=== PATIENT | male | born 1980 | race African-American/Black ===

== ENCOUNTER 2020-10-19 17:57 | Emergency (ER) | payer OTHER ==
[~2020-10-19] VITALS: Ht 185.4 cm; Wt 144.5 kg
[2020-10-19 19:00] VITALS: BP 216/107
--- NOTE | 2020-10-19 19:40 | RAD ---
XR EXAM OF ANKLE_LEFT 3V DATE: 10/19/2020 7:00 PM INDICATION: left ankle pain COMPARISON: None. FINDINGS: Bones: There is no evidence of acute fracture or dislocation. Small posterior and plantar calcaneal e nthesophytes. Joints: The ankle mortise is congruent. No widening of the distal tibiofibular syndesmosis. Miscellaneous: None. IMPRESSION: No evidence of acute fracture. Electronically signed by: Glen Connell MD (10/19/2020 7:38 PM) [facility]
--- NOTE | 2020-10-19 19:56 | ED.ADGEN ---
Past Medical History Past Medical History: Hypertension Past Surgical History: No Surgical History Smoking Status: Never Smoker Alcohol Use: None General Adult EDM: Chief Complaint: ANKLE PROBLEM HPI: HPI: Patient is a 40 year old AA male, accompanied [facility] assisted staff [facility] with complaints of lateral left ankle pain. Patient was working in the kitchen when he slipped and fell and twisted his left ankle. Patient was given Toradol at the facility. He currently denies any pain at rest, the pain increases with palpation. Patient denies any decreased sen sation, numbness, or tingling of the affected extremity. He reports increased pain on movement. Review of Systems: Review of Systems: Complete ROS is negative unless otherwise noted in HPI. Current Medications: Current Medications Medications (Trade) Dose Ordered Sig/William Start Time Stop Time Status Last Admin Dose Admin Morphine Sulfate (Morphine Sulfate) 4 mg 1X ONCE 10/19/20 20:00 10/19/20 19:58 DC Ondansetron HCl (Zofran) 4 mg 1X ONCE 10/19/20 20:00 10/19/20 19:58 DC Sodium Chloride 1,000 ml @ 1,000 mls/hr 1X ONCE 10/19/20 20:00 10/19/20 19:58 DC Allergies: Allergies: Allergies Coded Allergies Type Severity Reaction Last Updated Verified No Known Drug Allergies 10/19/20 No Physical Exam: PE: See Above Constitutional: Well developed, well nourished, no acute distress, non-toxic appearance, morbidly obese. [] HENT: Normocephalic, atraumatic, bilateral external ears normal, nose normal. [] Eyes: PERRLA, EOMI, conjunctiva normal, no discharge. [] Neck: Normal range of motion, no stridor. [] Cardiovascular:Heart rate regular rhythm Lungs & Thorax: Respirations even and unlabored, no retractions, no respiratory distress Skin: Warm, dry, no erythema, no rash. [] Extremities: Left ankle: Lateral tenderness to palpation without crepitus or obvious deformity, 2+ pedal and posterior tibial pulses, no cyanosis, ROM limited due to pain, 1+ lateral edema Neurologic: Alert and oriented X 3, no focal deficits noted. [] Psychologic: Affect normal, judgement normal, mood normal. [] Current Patient Data: Vital Signs: Vital Signs Date Time Temp Pulse Resp B/P (MAP) Pulse Ox O2 Delivery O2 Flow Rate FiO2 10/19/20 19:00 98.2 63 13 216/107 (143) 97 Room Air 98.2 EKG: EKG: [] Heart Score: C/O Chest Pain: No Risk Scores: Score 0 - 3: 2.5% MACE over next 6 weeks - Discharge Home Score 4 - 6: 20.3% MACE over next 6 weeks - Admit for Clinical Observation Score 7 - 10: 72.7% MACE over next 6 weeks - Early Invasive Strategies Radiology/Procedures: Radiology/Procedures: PROCEDURE: ANKLE LEFT 3V XR EXAM OF ANKLE_LEFT 3V DATE: 10/19/2020 7:00 PM INDICATION: left ankle pain COMPARISON: None. FINDINGS: Bones: There is no evidence of acute fracture or dislocation. Small posterior and plantar calcaneal enthesophytes. Joints: The ankle mortise is congruent. No widening of the distal tibiofibular syndesmosis. Miscellaneous: None. IMPRESSION: No evidence of acute fracture. Electronically signed by: Glen Connell MD (10/19/2020 7:38 PM) [facility] [] Course & Med Decision Making: Course & Med Decision Making Pertinent Labs and Imaging studies reviewed. (See chart for details) [] Akua Disclaimer: Akua Disclaimer: This electronic medical record was generated, in whole or in part, using a voice recognition dictation system. Departure Departure Impression: Primary Impression: Left lateral ankle pain Disposition: 01 HOME / SELF CARE / HOMELESS Condition: STABLE Referrals: NO PCP (PCP) EROS FONG DO Patient Instructions: Ankle Pain Additional Instructions: Fill prescription(s) and use as directed. Recommend application of ice, elevation, and rest of affected extremity. Wear the splint that was placed until follow up appointment. Follow-up with Dr. Fong next week if symptoms persist, return to the ER if your symptoms worsen. Scripts Naproxen (NAPROXEN) 500 Mg Tablet 1 TAB PO BID PRN for PAIN for 10 Days, #20 TAB 0 Refills Prov: ALLISON MANUEL DELIVERY PROFESSIONAL 10/19/20 Splinting Splinting : Pre-Made Type: velcro (ankle splint) Pre-Proc Neuro Vasc Exam: normal Post-Proc Neuro Vasc Exam: normal, unchanged from pre-exam Attending Signature Attending Signature I have reviewed the PA/SUBWAY TRAIN DRIVER's note and plan of care. I was available for consultation as needed during the patient's visit in the emergency department. I agree with the clinical impression, plan, and disposition. ALLISON MANUEL APRN Oct 19, 2020 19:56 OPAL MCNAMARA DO Oct 20, 2020 04:15
[2020-10-19] MEDS ORDERED: NAPR-514 PO (20:00)
[2020-10-19] MEDS ORDERED: ONDANSETRON PF 4 MG/2 ML VIAL. IV ONE (20:00)
[2020-10-19] MEDS ORDERED: IV NORMAL SALINE 1000ML BAG 1,000 ML IV ONE (20:00)
[2020-10-19] MEDS ORDERED: MORPHINE SULFATE 4 MG/ML VIAL. IV ONE (20:00)
== END 2020-10-19 20:14 | disposition home or self-care (01) ==
LOC: ER 17:57 → EEVIPCON 17:57 → ER 20:14
DX: M25.572 Pain in left ankle and joints of left foot (principal); G89.11 Acute pain due to trauma; I10 Essential (primary) hypertension; W01.0XXA Fall on same level from slipping, tripping and stumbling without subsequent striking against object, initial encounter; Y93.89 Activity, other specified; Y92.090 Kitchen in other non-institutional residence as the place of occurrence of the external cause; Y99.8 Other external cause status
CPT/HCPCS: 73610; 99283; L4350